=== PATIENT | male | born 1995 ===

== ENCOUNTER 2016-06-18 13:47 | Emergency (ER) | payer BC ==
[~2016-06-18] VITALS: Ht 190.5 cm; Wt 96.0 kg
[2016-06-18] MEDS ORDERED: IBUPROFEN 800 MG (MOTRIN) TAB PO ONE (14:50)
[2016-06-18 14:52] LABS: MEAN CORPUSCULAR HEMOGLOBIN 29.3 PG (26.0-34.0); MEAN CORPUSCULAR HGB CONC 35.4 g/dL (31.0-37.0); MEAN CORPUSCULAR VOLUME 83 FL (80-100); MEAN PLATELET VOLUME 9.1 FL (6.0-9.5); PLATELET COUNT 185 10^3uL (150-450); WHITE BLOOD COUNT 16.67 10^3uL (4.0-11.0)
[2016-06-18 15:09] LABS: BAND NEUTROPHILS % 3 % (0-6); EOSINOPHILS % 0 % (0-4); MONOCYTES # 1.1 #; MONOCYTES % 7 % (3-11); SEGMENTED NEUTROPHILS % 23 % (51-67)
[2016-06-18 15:10] LABS: RBC MORPH NORMAL (NORMAL)
[2016-06-18 15:11] LABS: LYMPHOCYTES # 7.3 #; TOTAL CELLS COUNTED 100
[2016-06-18 16:47] VITALS: BP 149/61
== END 2016-06-18 16:24 | disposition home or self-care (01) ==
LOC: ED 13:49
DX: B27.90 Infectious mononucleosis, unspecified without complication (principal)
CPT/HCPCS: 36415; 71020; 85025; 86308; 87486; 87581; 87633; 87798; 99283

== ENCOUNTER → 2016-08-09 | Outpatient (CLI) | payer BC ==
[~2016-08-09] MED LIST: AMOX1TAB12 PO; BENZ-22 PO; CEPH-331 PO; FLUT16SP IH; METH4TAB27 PO; PRED20TA PO; PRED5POW6 MC; TR1C15 TOP
--- NOTE | 2016-08-09 14:14 | Diagnostic Imaging Report ---
PROCEDURE: CT sinuses without contrast TECHNIQUE: Multiple contiguous axial images were obtained through the sinuses without the use of intravenous contrast. Coronal and sagittal reformations were then performed. DATE: August 09, 2016. INDICATION: 20-year-old male, sinusitis. COMPARISON: None. FINDINGS: There is complete opacification of the frontal sinus is and left maxillary sinus. There is near complete opacification of the right maxillary sinus and ethmoidal air cells with partially aerated posterior ethmoidal air cells bilaterally. There is prominent mucosal thickening of the bilateral sphenoid sinuses. There is opacification of the bilateral sphenoethmoidal recesses. There is opacification of the bilateral osteomeatal units. There is no aggressive bone destruction. There is no chronic wall thickening in the paranasal sinuses. The bony nasal septum is deviated to the right of midline. There is nonspecific partial opacification of the right mastoid air cells. There is no destruction of mastoid air cell septa. The right middle ear is well aerated. The left mastoid air cells are well aerated. The orbits are grossly unremarkable in appearance. IMPRESSION: 1. Nonspecific extensive paranasal sinus opacification as described above. There is no identified air-fluid level or finding to specifically suggest acute sinusitis. 2. No aggressive bone destruction. 3. Opacification of the bilateral sphenoethmoidal recesses and bilateral osteomeatal units. 4. Non-specific partial opacification of the right mastoid air cells without imaging findings to suggest coalescent mastoiditis. Report was stat faxed to office of Dr. Franz @ 2:13 PM/unique. Dictated by: Dictated on workstation # [id number]
== END ==
LOC: RAD 13:36
PROVIDERS: ATTEND Family Medicine
DX: J01.00 Acute maxillary sinusitis, unspecified (principal)
CPT/HCPCS: 70486